=== PATIENT | female | born 1950 | race Two or more races ===

== ENCOUNTER 2024-07-15 07:37 | Inpatient (IN) | payer OTHER ==
[~2024-07-15] VITALS: Ht 157.5 cm; Wt 69.4 kg
[2024-07-15] MEDS ORDERED: CHILDREN'S ASPI81 MG (07:59)
[2024-07-15] MEDS ORDERED: ABATINEX680 MG PO (08:00)
[2024-07-15] MEDS ORDERED: ZESTRIL10 M1 (08:00)
[2024-07-15] MEDS ORDERED: INTEGRA PLUS C1 EACH (08:00)
[2024-07-15] MEDS ORDERED: ATORVASTATIN CA40 MG PO (08:01)
[2024-07-15] MEDS ORDERED: GLIPIZIDE XL10 MG (08:01)
[2024-07-15] MEDS ORDERED: GABAPENTIN300 M2 PO (08:01)
[2024-07-15] MEDS ORDERED: LEVOFLOXACIN750 MG PO (08:01)
[2024-07-15 09:31] LABS: PH,URINE 5.5 (5.0-8.0); URINE APPEARANCE Clear; URINE BILIRRUBIN Negative (NEGATIVE); URINE BLOOD Small; URINE COLOR Yellow; URINE KETONE Negative (NEGATIVE); URINE LEUKOCYTE Negative; URINE NITRATE Negative
[2024-07-15 09:34] LABS: URINE BACTERIA 11.3 uL (0.0-1933); URINE CAST 1.98 uL (0.0-1.40); URINE EPITHELIAL CELLS 9.8 uL (0.0-38.8); URINE RBC 13.4 uL (0.0-20.8)
[2024-07-15 09:40] LABS: URINE GLUCOSE >=1000 MG/DL (NEGATIVE); URINE PROTEIN 300 (NEGATIVE)
[2024-07-15 09:43] LABS: HEMATOCRIT 26.2 % (36.0-45.00); MEAN CORPUSCULAR HEMOGLOBIN 27.9 pg (27.00-32.0); MEAN CORPUSCULAR HGB CONC 32.5 g/dl (32.0-36.0); PLATELET COUNT 646 K/uL (150-450); RED BLOOD COUNT 3.04 M/uL (4.00-6.00); RED CELL DISTRIBUTION WIDTH 15.1 % (11.5-14.5)
[2024-07-15 09:45] LABS: HEMOGLOBIN 8.5 g/dL (12.0-15.00)
[2024-07-15 09:59] LABS: ALBUMIN 2.2 gm/dL (3.4-5.0); BILIRUBIN TOTAL 0.62 mg/dL (0.3-1.2); CALCIUM 9.8 mg/dL (8.5-10.1); CREATININE SERUM 0.66 mg/dL (0.55-1.02); GFR 88.03; GLOBULINA 6.1 G/DL (2.4-3.5); POTASSIUM 3.46 mEq/L (3.5-5.1); TOTAL PROTEIN 8.3 gm/dL (6.4-8.2)
[2024-07-15 10:00] LABS: C-REACTIVE PROTEIN 21.2 MG/DL (0.00-0.29); INR 1.2; PROTHROMBIN TIME 12.9 SECONDS (9.0-11.5)
[2024-07-15 10:19] LABS: PARTIAL THROMBOPLASTIN TIME 55.5 SECONDS (22.0-34.0)
[2024-07-15 11:35] LABS: ERYTHROCYTE SEDIMENTATION RATE > 130 mm/hr
[2024-07-15] MEDS ORDERED: 0.9 % SODIUM CHLORIDE 1,000 ML IV SCH (18:15)
[2024-07-15 18:20] VITALS: BP 135/60
[2024-07-15] MEDS ORDERED: VANCOMYCIN HCL 1,000 MG VIAL IV SCH (18:25)
[2024-07-15] MEDS ORDERED: CEFEPIME HCL 2,000 MG in 0.9 % SODIUM CHLORIDE 100 ML IV SCH (18:25)
[2024-07-15] MEDS ORDERED: ACETAMINOPHEN 500 MG GEL..CAP PO PRN (18:30)
[2024-07-15] MEDS ORDERED: DEXTROSE 50 % IN WATER 0.5 G/ML DISP.SYRIN IV PRN (18:30)
[2024-07-15] MEDS ORDERED: INSULIN LISPRO 1,000 UNIT/10 ML UNITS SUBCUTANEO PRN ×2 (18:30→20:30)
[2024-07-15] MEDS ORDERED: CEFEPIME HCL 2,000 MG VIAL ONE (19:35)
[2024-07-15] MEDS ORDERED: VANCOMYCIN HCL 1,000 MG VIAL ONE (19:35)
[2024-07-15 22:08] VITALS: BP 154/73
[2024-07-16] MEDS ORDERED: CEFEPIME HCL 2,000 MG VIAL ONE (02:38)
[2024-07-16 03:34] VITALS: BP 145/75; O2SAT 98
[2024-07-16] MEDS ORDERED: GABAPENTIN 300 MG CAPSULE PO SCH (09:00)
[2024-07-16] MEDS ORDERED: SODIUM HYPOCHLORITE 1OZ TOP SCH (09:00)
[2024-07-16] MEDS ORDERED: LISINOPRIL 10 MG TABLET PO SCH (09:00)
[2024-07-16] MEDS ORDERED: FAMOTIDINE/PF 20 MG in 0.9 % SODIUM CHLORIDE 8 ML IV PUSH SCH (09:00)
[2024-07-16] MEDS ORDERED: IRON FUM,PS/FOLIC/BCOMP,C NO.9 1 CAP CAPSULE PO SCH (09:00)
[2024-07-16] MEDS ORDERED: ATORVASTATIN CALCIUM 40 MG TABLET PO SCH (09:00)
[2024-07-16 09:11] VITALS: BP 158/69; O2SAT 98
[2024-07-16] MEDS ORDERED: METRONIDAZOLE/SODIUM CHLORIDE 500 MG/100 ML PIGGYBACK IV SCH (17:00)
[2024-07-16 18:13] VITALS: BP 121/65; O2SAT 96
[2024-07-16 20:18] LABS: HEMATOCRIT 25.1 % (36.0-45.00); MEAN CORPUSCULAR HEMOGLOBIN 28.1 pg (27.00-32.0); PLATELET COUNT 512 K/uL (150-450); RED BLOOD COUNT 2.95 M/uL (4.00-6.00)
[2024-07-16 20:19] LABS: HEMOGLOBIN 8.3 g/dL (12.0-15.00)
[2024-07-16 20:49] LABS: CALCIUM 8.4 mg/dL (8.5-10.1); CREATININE SERUM 0.9 mg/dL (0.55-1.02); GFR 61.55; POTASSIUM 4.16 mEq/L (3.5-5.1)
[2024-07-17 02:17] VITALS: BP 137/65
[2024-07-17 09:38] VITALS: BP 158/64; O2SAT 98
[2024-07-17] MEDS ORDERED: FLUCONAZOLE IN NACL,ISO-OSM 100 ML IV SCH (13:15)
[2024-07-17] MEDS ORDERED: VANCOMYCIN HCL 5 MG/ML REDILUIDO IV SCH (17:00)
[2024-07-17 18:09] VITALS: BP 150/64; O2SAT 99
[2024-07-17] MEDS ORDERED: FUROsemide 20 MG/2 ML VIAL IV SCH (20:45)
[2024-07-17] MEDS ORDERED: FAMOTIDINE/PF 20 MG in 0.9 % SODIUM CHLORIDE 8 ML IV PUSH SCH (21:00)
[2024-07-18 02:41] VITALS: BP 167/64
[2024-07-18 09:22] VITALS: BP 166/68
[2024-07-19 02:33] VITALS: BP 109/58; O2SAT 95
[2024-07-19] MEDS ORDERED: FAMOTIDINE/PF 20 MG/2 ML VIAL ONE (08:28)
[2024-07-19 09:21] VITALS: BP 135/64; O2SAT 98
[2024-07-19 14:01] LABS: HEMATOCRIT 28.7 % (36.0-45.00); MEAN CELL VOLUME 85.7 fL (80.00-100.00); MEAN CORPUSCULAR HGB CONC 32.1 g/dl (32.0-36.0); RED BLOOD COUNT 3.35 M/uL (4.00-6.00); RED CELL DISTRIBUTION WIDTH 15.2 % (11.5-14.5)
[2024-07-19 14:19] LABS: HEMOGLOBIN 9.2 g/dL (12.0-15.00); MEAN CORPUSCULAR HEMOGLOBIN 27.4 pg (27.00-32.0); PLATELET COUNT 521 K/uL (150-450)
[2024-07-19 14:30] LABS: CALCIUM 8.6 mg/dL (8.5-10.1); CREATININE SERUM 0.75 mg/dL (0.55-1.02); GFR 75.96; POTASSIUM 4.01 mEq/L (3.5-5.1)
[2024-07-19 16:43] VITALS: BP 119/60; O2SAT 98
[2024-07-19] MEDS ORDERED: ASPIRIN 81 MG TAB.CHEW PO SCH (17:00)
[2024-07-19] MEDS ORDERED: CLOPIDOGREL BISULFATE 75 MG TABLET PO SCH (17:00)
[2024-07-19] MEDS ORDERED: 0.9 % SODIUM CHLORIDE 10 ML VIAL IJ ONE (20:25)
[2024-07-20 00:56] VITALS: BP 110/63; O2SAT 100
[2024-07-20 08:00] VITALS: BP 156/71; O2SAT 98
[2024-07-20] MEDS ORDERED: LINEZOLID IN DEXTROSE 5% 300 ML IV SCH (10:45)
[2024-07-20 13:41] LABS: HEMATOCRIT 34.5 % (36.0-45.00); HEMOGLOBIN 11.2 g/dL (12.0-15.00); MEAN CELL VOLUME 85.7 fL (80.00-100.00); MEAN CORPUSCULAR HEMOGLOBIN 27.8 pg (27.00-32.0); MEAN CORPUSCULAR HGB CONC 32.4 g/dl (32.0-36.0); PLATELET COUNT 565 K/uL (150-450); RED BLOOD COUNT 4.03 M/uL (4.00-6.00); RED CELL DISTRIBUTION WIDTH 15.3 % (11.5-14.5)
[2024-07-20] MEDS ORDERED: MORPHINE SULFATE 4 MG/ML CARTRIDGE IV SCH (17:29)
[2024-07-20] MEDS ORDERED: GABAPENTIN 300 MG CAPSULE PO SCH (17:30)
[2024-07-20] MEDS ORDERED: hydrALAZINE HCL 20 MG VIAL IV ONE (17:30)
[2024-07-20] MEDS ORDERED: KETOROLAC TROMETHAMINE 30 MG VIAL IV SCH (18:00)
[2024-07-20] MEDS ORDERED: MORPHINE SULFATE 4 MG/ML VIAL IV ONE ×3 (18:00→19:00)
[2024-07-20 22:21] VITALS: BP 157/71
[2024-07-21 03:35] VITALS: BP 157/95; O2SAT 99
[2024-07-21] MEDS ORDERED: FAMOTIDINE/PF 20 MG/2 ML VIAL ONE ×2 (08:25→20:50)
[2024-07-21 10:21] VITALS: BP 166/88
[2024-07-21 15:57] LABS: HEMATOCRIT 30.8 % (36.0-45.00); MEAN CORPUSCULAR HEMOGLOBIN 27.7 pg (27.00-32.0); MEAN CORPUSCULAR HGB CONC 32.5 g/dl (32.0-36.0); PLATELET COUNT 554 K/uL (150-450); RED BLOOD COUNT 3.62 M/uL (4.00-6.00); RED CELL DISTRIBUTION WIDTH 15.5 % (11.5-14.5)
[2024-07-21 19:05] VITALS: BP 160/77; O2SAT 97
[2024-07-22 02:06] VITALS: BP 166/71; O2SAT 94
[2024-07-22] MEDS ORDERED: FAMOTIDINE/PF 20 MG/2 ML VIAL ONE (08:35)
[2024-07-22] MEDS ORDERED: SODIUM CL 0.9% 100 ML IV.SOLN IV ONE (08:35)
[2024-07-22] MEDS ORDERED: AMLODIPINE BESYLATE 2.5 MG TABLET PO SCH (09:00)
[2024-07-22 09:27] VITALS: BP 198/86
[2024-07-22] MEDS ORDERED: ONDANSETRON HCL 2 MG/ML VIAL IV PRN (13:30)
[2024-07-22] MEDS ORDERED: hydrALAZINE HCL 20 MG VIAL IV STA (13:44)
[2024-07-22] MEDS ORDERED: SODIUM CHLORIDE 0.45 % 1,000 ML IV SCH (13:45)
[2024-07-22] MEDS ORDERED: hydrALAZINE HCL 20 MG VIAL IV PRN (13:45)
[2024-07-22 20:23] VITALS: BP 160/76; O2SAT 98
[2024-07-23 01:53] VITALS: BP 194/78; O2SAT 96
[2024-07-23 07:51] LABS: HEMATOCRIT 35.7 % (36.0-45.00); HEMOGLOBIN 11.4 g/dL (12.0-15.00); MEAN CELL VOLUME 86.2 fL (80.00-100.00); MEAN CORPUSCULAR HEMOGLOBIN 27.5 pg (27.00-32.0); MEAN CORPUSCULAR HGB CONC 31.9 g/dl (32.0-36.0); PLATELET COUNT 660 K/uL (150-450); RED BLOOD COUNT 4.14 M/uL (4.00-6.00); RED CELL DISTRIBUTION WIDTH 15.5 % (11.5-14.5)
[2024-07-23 08:42] LABS: ALBUMIN 1.9 gm/dL (3.4-5.0); BILIRUBIN TOTAL 0.68 mg/dL (0.3-1.2); CALCIUM 8.8 mg/dL (8.5-10.1); CREATININE SERUM 0.53 mg/dL (0.55-1.02); GFR 113.39; GLOBULINA 4.8 G/DL (2.4-3.5); POTASSIUM 3.64 mEq/L (3.5-5.1); TOTAL PROTEIN 6.7 gm/dL (6.4-8.2)
[2024-07-23 09:41] VITALS: BP 178/74
[2024-07-23] MEDS ORDERED: PANTOPRAZOLE SODIUM 40 MG/VIAL VIAL IV STA (14:06)
[2024-07-23] MEDS ORDERED: MEROPENEM 500 MG/VIAL VIAL IV SCH (14:07)
[2024-07-23 16:00] VITALS: BP 191/78
[2024-07-23 17:55] LABS: LIPASE 31 U/L (13-75)
[2024-07-23 18:04] LABS: AMYLASE 14 U/L (25-115)
[2024-07-23] MEDS ORDERED: PANTOPRAZOLE SODIUM 40 MG/VIAL VIAL IV SCH (21:00)
[2024-07-23] MEDS ORDERED: ZOLPIDEM TARTRATE 5 MG TABLET PO ONE (21:15)
[2024-07-23] MEDS ORDERED: INSULIN GLARGINE,HUM.REC.ANLOG 1,000 UNITS/10 ML UNITS SUBCUTANEO STA (21:23)
[2024-07-23] MEDS ORDERED: INSULIN GLARGINE,HUM.REC.ANLOG 1,000 UNITS/10 ML UNITS SUBCUTANEO ONE (22:24)
[2024-07-24 02:01] VITALS: BP 182/79
[2024-07-24] MEDS ORDERED: METOCLOPRAMIDE HCL 5 MG/ML VIAL IV SCH (07:00)
[2024-07-24] MEDS ORDERED: INSULIN LISPRO 1,000 UNIT/10 ML UNITS SUBCUTANEO SCH (08:00)
[2024-07-24 09:42] VITALS: BP 178/81; O2SAT 98
[2024-07-24 18:49] VITALS: BP 193/72
[2024-07-24 20:25] VITALS: BP 140/80
[2024-07-24] MEDS ORDERED: INSULIN GLARGINE,HUM.REC.ANLOG 1,000 UNITS/10 ML UNITS SUBCUTANEO SCH (21:00)
[2024-07-25 02:00] VITALS: BP 146/68
[2024-07-25 08:40] LABS: HEMATOCRIT 33.3 % (36.0-45.00); MEAN CELL VOLUME 84.9 fL (80.00-100.00); MEAN CORPUSCULAR HGB CONC 32.2 g/dl (32.0-36.0); PLATELET COUNT 576 K/uL (150-450); RED BLOOD COUNT 3.93 M/uL (4.00-6.00); RED CELL DISTRIBUTION WIDTH 16.2 % (11.5-14.5)
[2024-07-25 08:41] LABS: HEMOGLOBIN 10.7 g/dL (12.0-15.00); MEAN CORPUSCULAR HEMOGLOBIN 27.2 pg (27.00-32.0)
[2024-07-25 08:55] VITALS: BP 169/54
[2024-07-25 18:37] VITALS: BP 147/70; O2SAT 99
[2024-07-25 20:29] LABS: PH,URINE 6.5 (5.0-8.0); URINE APPEARANCE Clear; URINE BILIRRUBIN Negative (NEGATIVE); URINE BLOOD Large; URINE COLOR Dark Yellow; URINE KETONE Trace (NEGATIVE); URINE LEUKOCYTE Negative; URINE NITRATE Negative
[2024-07-25 20:32] LABS: URINE BACTERIA 64.2 uL (0.0-1933); URINE EPITHELIAL CELLS 40.8 uL (0.0-38.8); URINE RBC 562.3 uL (0.0-20.8); URINE WBC 25.3 uL (0.0-23.2)
[2024-07-25] MEDS ORDERED: LINEZOLID 600 MG TABLET PO SCH (21:00)
[2024-07-25 21:26] LABS: URINE GLUCOSE 100 MG/DL (NEGATIVE); URINE PROTEIN 300 (NEGATIVE)
[2024-07-25 21:27] LABS: URINE CAST 1.37 uL (0.0-1.40)
[2024-07-25 21:29] LABS: URINE CRYSTALS FEW /HPF; URINE MUCUS MODERATE
[2024-07-25 22:04] VITALS: BP 168/71; O2SAT 98
[2024-07-26 02:00] VITALS: BP 164/74
[2024-07-26] MEDS ORDERED: DIATRIZOATE MEGLUMINE, SODIUM 30 ML BOTTLE PO NR (06:15)
[2024-07-26] MEDS ORDERED: FLUCONAZOLE 200 MG TABLET PO SCH (09:00)
[2024-07-26 09:22] VITALS: BP 167/70
[2024-07-26 18:13] VITALS: BP 170/69
[2024-07-27 01:21] VITALS: BP 174/64
[2024-07-27 04:14] VITALS: BP 157/77
[2024-07-27 09:07] LABS: HEMATOCRIT 29.4 % (36.0-45.00); HEMOGLOBIN 9.6 g/dL (12.0-15.00); MEAN CELL VOLUME 85.8 fL (80.00-100.00); MEAN CORPUSCULAR HGB CONC 32.6 g/dl (32.0-36.0); PLATELET COUNT 477 K/uL (150-450); RED BLOOD COUNT 3.43 M/uL (4.00-6.00)
[2024-07-27 10:32] VITALS: BP 154/81
[2024-07-27] MEDS ORDERED: POLYETHYLENE GLYCOL 3350 17 GM BLIST.PACK PO NR (13:00)
[2024-07-27] MEDS ORDERED: SOD FERRIC GLUC COMPLX/SUCROSE 62.5 MG in 0.9 % SODIUM CHLORIDE 50 ML IV SCH (17:00)
[2024-07-27 17:14] VITALS: BP 102/79
[2024-07-28 02:00] VITALS: BP 153/73
[2024-07-28] MEDS ORDERED: POLYETHYLENE GLYCOL 3350 17 GM BLIST.PACK PO SCH (09:00)
[2024-07-28 09:42] VITALS: BP 164/70; O2SAT 99
[2024-07-28 17:33] VITALS: BP 164/81
[2024-07-29 02:00] VITALS: BP 166/73
[2024-07-29 08:46] LABS: HEMATOCRIT 30.5 % (36.0-45.00); HEMOGLOBIN 9.9 g/dL (12.0-15.00); MEAN CELL VOLUME 85.7 fL (80.00-100.00); MEAN CORPUSCULAR HEMOGLOBIN 27.7 pg (27.00-32.0); MEAN CORPUSCULAR HGB CONC 32.4 g/dl (32.0-36.0); PLATELET COUNT 545 K/uL (150-450); RED BLOOD COUNT 3.56 M/uL (4.00-6.00); RED CELL DISTRIBUTION WIDTH 16.1 % (11.5-14.5)
[2024-07-29 08:51] LABS: ALBUMIN 1.4 gm/dL (3.4-5.0); BILIRUBIN TOTAL 0.62 mg/dL (0.3-1.2); CALCIUM 7.7 mg/dL (8.5-10.1); CREATININE SERUM 0.4 mg/dL (0.55-1.02); GFR 156.9; GLOBULINA 4.2 G/DL (2.4-3.5); POTASSIUM 3.23 mEq/L (3.5-5.1); TOTAL PROTEIN 5.6 gm/dL (6.4-8.2)
[2024-07-29 08:52] LABS: C-REACTIVE PROTEIN 12.9 MG/DL (0.00-0.29)
[2024-07-29] MEDS ORDERED: AMLODIPINE BESYLATE 5 MG TABLET PO SCH (09:00)
[2024-07-29 09:16] VITALS: BP 170/68
[2024-07-29] MEDS ORDERED: AMINO ACIDS/PROTEIN HYDROLYS 30 ML BLIST.PACK PO SCH (09:40)
[2024-07-29] MEDS ORDERED: POTASSIUM CHLORIDE 20MEQ/100ML H2O PB IV NR (16:00)
[2024-07-29 17:25] VITALS: BP 160/64
[2024-07-30 02:00] VITALS: BP 145/76
[2024-07-30 08:49] VITALS: BP 160/88; O2SAT 98
[2024-07-30 17:34] VITALS: BP 177/77; O2SAT 98
[2024-07-31 02:29] VITALS: BP 160/74; O2SAT 95
[2024-07-31 09:09] VITALS: BP 168/73; O2SAT 97
[2024-07-31 15:35] VITALS: BP 170/69; O2SAT 96
[2024-07-31 20:34] LABS: CALCIUM 8.3 mg/dL (8.5-10.1); CREATININE SERUM 0.54 mg/dL (0.55-1.02); GFR 110.97; POTASSIUM 3.81 mEq/L (3.5-5.1)
[2024-08-01 02:00] VITALS: BP 177/76; O2SAT 97
[2024-08-01 09:25] VITALS: BP 120/63; O2SAT 98
[2024-08-01] MEDS ORDERED: FLUCONAZOLE IN NACL,ISO-OSM 100 ML IV SCH (17:45)
[2024-08-01] MEDS ORDERED: ACETAMINOPHEN 500 MG GEL..CAP PO SCH (18:00)
[2024-08-01 20:30] VITALS: BP 160/70; O2SAT 97
[2024-08-01 20:57] LABS: HEMATOCRIT 33.1 % (36.0-45.00); MEAN CELL VOLUME 84.7 fL (80.00-100.00); MEAN CORPUSCULAR HEMOGLOBIN 28.2 pg (27.00-32.0); MEAN CORPUSCULAR HGB CONC 33.3 g/dl (32.0-36.0); PLATELET COUNT 584 K/uL (150-450); RED BLOOD COUNT 3.91 M/uL (4.00-6.00); RED CELL DISTRIBUTION WIDTH 16.5 % (11.5-14.5)
[2024-08-01] MEDS ORDERED: LINEZOLID IN DEXTROSE 5% 600 MG/300 ML PIGGYBAG IV SCH (21:00)
[2024-08-01 21:20] LABS: ALBUMIN 1.8 gm/dL (3.4-5.0); BILIRUBIN TOTAL 2.04 mg/dL (0.3-1.2); CALCIUM 8.7 mg/dL (8.5-10.1); CREATININE SERUM 0.58 mg/dL (0.55-1.02); GFR 102.19; GLOBULINA 4.7 G/DL (2.4-3.5); POTASSIUM 4.34 mEq/L (3.5-5.1); TOTAL PROTEIN 6.5 gm/dL (6.4-8.2)
[2024-08-01 21:39] LABS: URINE APPEARANCE Clear; URINE BILIRRUBIN Moderate (NEGATIVE); URINE BLOOD Moderate; URINE COLOR Dark Yellow; URINE KETONE Trace (NEGATIVE); URINE LEUKOCYTE Trace; URINE NITRATE Negative
[2024-08-01 21:42] LABS: URINE BACTERIA 17.6 uL (0.0-1933); URINE CAST 1.83 uL (0.0-1.40); URINE EPITHELIAL CELLS 17.9 uL (0.0-38.8); URINE RBC 598.9 uL (0.0-20.8); URINE WBC 25.6 uL (0.0-23.2)
[2024-08-01 21:50] LABS: URINE GLUCOSE >=1000 MG/DL (NEGATIVE)
[2024-08-01 21:51] LABS: URINE PROTEIN 300 (NEGATIVE)
[2024-08-02 01:40] VITALS: BP 129/70
[2024-08-02 10:23] VITALS: BP 145/66
[2024-08-02 18:30] VITALS: BP 162/77
[2024-08-03 02:09] VITALS: BP 169/68
[2024-08-03 09:16] VITALS: BP 160/67; O2SAT 98
[2024-08-03 17:09] VITALS: BP 174/82; O2SAT 99
[2024-08-04 02:47] VITALS: BP 157/71; O2SAT 96
[2024-08-04 09:41] VITALS: BP 170/76
[2024-08-04 09:51] LABS: HEMATOCRIT 33.4 % (36.0-45.00); HEMOGLOBIN 11.1 g/dL (12.0-15.00); MEAN CELL VOLUME 85.3 fL (80.00-100.00); MEAN CORPUSCULAR HEMOGLOBIN 28.3 pg (27.00-32.0); MEAN CORPUSCULAR HGB CONC 33.2 g/dl (32.0-36.0); PLATELET COUNT 626 K/uL (150-450); RED BLOOD COUNT 3.91 M/uL (4.00-6.00); RED CELL DISTRIBUTION WIDTH 16.6 % (11.5-14.5)
[2024-08-04 10:00] LABS: ERYTHROCYTE SEDIMENTATION RATE 111 mm/hr
[2024-08-04 10:27] LABS: ALBUMIN 2.1 gm/dL (3.4-5.0); BILIRUBIN TOTAL 0.54 mg/dL (0.3-1.2); CREATININE SERUM 0.54 mg/dL (0.55-1.02); GFR 110.97; GLOBULINA 4.9 G/DL (2.4-3.5); POTASSIUM 4.45 mEq/L (3.5-5.1)
[2024-08-04 10:30] LABS: C-REACTIVE PROTEIN 4.8 MG/DL (0.00-0.29)
[2024-08-04 17:16] VITALS: BP 171/74
[2024-08-05 09:57] VITALS: BP 151/60
[2024-08-05 19:01] VITALS: BP 135/69; O2SAT 95
[2024-08-06 02:19] VITALS: BP 182/82; O2SAT 94
[2024-08-06 09:00] VITALS: BP 162/90
[2024-08-06 09:04] LABS: HEMATOCRIT 33.8 % (36.0-45.00); HEMOGLOBIN 11.2 g/dL (12.0-15.00); MEAN CELL VOLUME 85.9 fL (80.00-100.00); MEAN CORPUSCULAR HEMOGLOBIN 28.4 pg (27.00-32.0); MEAN CORPUSCULAR HGB CONC 33.1 g/dl (32.0-36.0); PLATELET COUNT 604 K/uL (150-450); RED BLOOD COUNT 3.94 M/uL (4.00-6.00); RED CELL DISTRIBUTION WIDTH 16.1 % (11.5-14.5)
[2024-08-06 09:38] LABS: ALBUMIN 2.3 gm/dL (3.4-5.0); BILIRUBIN TOTAL 0.57 mg/dL (0.3-1.2); CALCIUM 9.3 mg/dL (8.5-10.1); CREATININE SERUM 0.49 mg/dL (0.55-1.02); GFR 124.14; GLOBULINA 4.7 G/DL (2.4-3.5); POTASSIUM 4.95 mEq/L (3.5-5.1)
[2024-08-06 17:00] LABS: AMYLASE 31 U/L (25-115); LIPASE 59 U/L (13-75)
[2024-08-06 18:12] VITALS: BP 155/66; O2SAT 96
[2024-08-07 01:55] VITALS: BP 173/78; O2SAT 95
[2024-08-07 08:54] VITALS: BP 182/69
[2024-08-07] MEDS ORDERED: INSULIN GLARGINE,HUM.REC.ANLOG 1,000 UNITS/10 ML UNITS SUBCUTANEO SCH (09:00)
[2024-08-07 16:00] VITALS: BP 180/75; O2SAT 96
[2024-08-07] MEDS ORDERED: CLOPIDOGREL BIS75 MG PO (19:08)
[2024-08-07] MEDS ORDERED: LISINOPRIL10 MG PO (19:08)
[2024-08-07] MEDS ORDERED: AMLODIPINE BESYL5 MG PO (19:08)
[2024-08-07] MEDS ORDERED: ADULT ASPIRIN81 MG PO (19:08)
[2024-08-07] MEDS ORDERED: INTEGRA PLUS C1 EACH PO (19:08)
[2024-08-07] MEDS ORDERED: LIPITOR40 M1 PO (19:08)
[2024-08-07] MEDS ORDERED: INSULIN LI100 UNIT/1 SUBCUTANEO (19:09)
[2024-08-07] MEDS ORDERED: GABAPENTIN300 M2 PO (19:09)
[2024-08-07] MEDS ORDERED: Lantus 1000 UNITS/10 SUBCUTANEO (19:09)
[2024-08-07] MEDS ORDERED: PROTEINEX-18 LI30 ML PO (19:09)
[2024-08-08 02:29] VITALS: BP 160/75; O2SAT 95
[2024-08-08 08:18] VITALS: BP 163/80
== END 2024-08-08 14:05 | disposition home or self-care (01) | DRG 240 ==
LOC: ER 07:37 → MEDI 19:06 → MEDJ 19:06
PROVIDERS: General Practice; Internal Medicine; Internal Medicine Infectious Disease; Specialist; ADMIT Internal Medicine; ATTEND Internal Medicine
PROC: BQ2SYZZ Computerized Tomography (CT Scan) of Left Lower Extremity using Other Contrast (ICD-10-PCS; 2024-07-15)
PROC: B44HZZZ Ultrasonography of Bilateral Lower Extremity Arteries (ICD-10-PCS; 2024-07-15)
PROC: B54DZZZ Ultrasonography of Bilateral Lower Extremity Veins (ICD-10-PCS; 2024-07-15)
PROC: BL31ZZZ Magnetic Resonance Imaging (MRI) of Lower Extremity Connective Tissue (ICD-10-PCS; 2024-07-16)
PROC: 30233N1 Transfusion of Nonautologous Red Blood Cells into Peripheral Vein, Percutaneous Approach (ICD-10-PCS; 2024-07-16)
PROC: 047Q3ZZ Dilation of Left Anterior Tibial Artery, Percutaneous Approach (ICD-10-PCS; 2024-07-18)
PROC: 047L34Z Dilation of Left Femoral Artery with Drug-eluting Intraluminal Device, Percutaneous Approach (ICD-10-PCS; 2024-07-18)
PROC: B44GZZ3 Ultrasonography of Left Lower Extremity Arteries, Intravascular (ICD-10-PCS; 2024-07-18)
PROC: 0Y6J0Z1 Detachment at Left Lower Leg, High, Open Approach (ICD-10-PCS; principal; 2024-07-20 16:00)
PROC: BW21YZZ Computerized Tomography (CT Scan) of Abdomen and Pelvis using Other Contrast (ICD-10-PCS; 2024-07-25)
PROC: B54BZZZ Ultrasonography of Right Lower Extremity Veins (ICD-10-PCS; 2024-07-25)
DX: E11.52 Type 2 diabetes mellitus with diabetic peripheral angiopathy with gangrene (principal); D62 Acute posthemorrhagic anemia; I96 Gangrene, not elsewhere classified; M86.172 Other acute osteomyelitis, left ankle and foot; L97.828 Non-pressure chronic ulcer of other part of left lower leg with other specified severity; L03.116 Cellulitis of left lower limb; J98.11 Atelectasis; J90 Pleural effusion, not elsewhere classified; K80.10 Calculus of gallbladder with chronic cholecystitis without obstruction; E11.621 Type 2 diabetes mellitus with foot ulcer; E11.65 Type 2 diabetes mellitus with hyperglycemia; D64.89 Other specified anemias; E86.0 Dehydration; K59.09 Other constipation; R79.89 Other specified abnormal findings of blood chemistry; F32.89 Other specified depressive episodes; M54.2 Cervicalgia; M54.89 Other dorsalgia; M25.512 Pain in left shoulder; I10 Essential (primary) hypertension; E78.5 Hyperlipidemia, unspecified; Z74.01 Bed confinement status; Z79.84 Long term (current) use of oral hypoglycemic drugs; Z87.891 Personal history of nicotine dependence; B96.6 Bacteroides fragilis [B. fragilis] as the cause of diseases classified elsewhere; B95.2 Enterococcus as the cause of diseases classified elsewhere; B96.89 Other specified bacterial agents as the cause of diseases classified elsewhere

== ENCOUNTER 2024-08-18 01:50 | Emergency (ER) | payer OTHER ==
[~2024-08-18] VITALS: Ht 165.1 cm; Wt 68.0 kg
[~2024-08-18 01:50] MED LIST: ABATINEX680 MG PO; ADULT ASPIRIN81 MG PO; AMLODIPINE BESYL5 MG PO; ATORVASTATIN CA40 MG PO; CHILDREN'S ASPI81 MG; CLOPIDOGREL BIS75 MG PO; GABAPENTIN300 M2 PO; GLIPIZIDE XL10 MG; INSULIN LI100 UNIT/1 SUBCUTANEO; INTEGRA PLUS C1 EACH; INTEGRA PLUS C1 EACH PO; LEVOFLOXACIN750 MG PO; LIPITOR40 M1 PO; LISINOPRIL10 MG PO; Lantus 1000 UNITS/10 SUBCUTANEO; PROTEINEX-18 LI30 ML PO; ZESTRIL10 M1
== END 2024-08-18 03:58 | disposition home or self-care (01) ==
LOC: ER 01:52
DX: G89.18 Other acute postprocedural pain (principal)